=== PATIENT | male | born 1960 | race Caucasian/White ===

== ENCOUNTER 2018-07-22 08:27 | Emergency (ER) | payer BC ==
[2018-07-22 08:58] VITALS: BP 110/76
--- NOTE | 2018-07-22 09:06 | UC ---
UC General HPI - HPI Summary HPI Summary: pt reports having a 2 day hx of fever and a swollen -painful gland on the R side of his neck for 2 days. fever has resolved. pain from gland worsens with turn of head, swallow. no difficulty with passing of food, saliva or liquids. denies any skin rash, sore throat or dental pain. pt is a smoker but is taking Chantix and reducing use. he does not chew. - History of Current Complaint Chief Complaint: UCGeneralIllness Stated Complaint: NECK PAIN,FEVER Time Seen by Provider: 07/22/18 08:58 Hx Obtained From: Patient Timing: Constant Pain Intensity: 7 Associated Signs & Symptoms: Positive: Fever - Allergy/Home Medications Allergies/Adverse Reactions: Allergies Allergy/AdvReac Type Severity Reaction Status Date / Time No Known Allergies Allergy Verified 07/22/18 08:51 Home Medications: Home Medications metFORMIN* [Glucophage 500 MG TAB *] 500 mg PO DAILY 07/22/18 [History Confirmed 07/22/18] PMH/Surg Hx/FS Hx/Imm Hx Endocrine History: Diabetes, Dyslipidemia Cardiovascular History: Hypertension - Surgical History Surgical History: Yes Surgery Procedure, Year, and Place: RT SHOULDER SURGERY 2004. L SHOULDER SCOPING 02/04/15 [place]. stents - Family History Known Family History: Positive: None - Social History Alcohol Use: Occasionally Substance Use Type: None Smoking Status (MU): Light Every Day Tobacco Smoker Type: Cigarettes Amount Used/How Often: 1 cigarette daily Length of Time of Smoking/Using Tobacco: 36 YRS Have You Smoked in the Last Year: Yes - Immunization History Vaccination Up to Date: Yes Review of Systems All Other Systems Reviewed And Are Negative: Yes Constitutional: Positive: Fever Skin: Negative: Rash Eyes: Positive: Negative ENT: Negative: Dental Pain, Sore Throat, Ear Ache, Nasal Discharge, Sinus Congestion, Sinus Pain/Tenderness Respiratory: Negative: Shortness Of Breath, Cough Cardiovascular: Positive: Negative Gastrointestinal: Positive: Negative Genitourinary: Positive: Negative Motor: Positive: Negative Neurovascular: Positive: Negative Musculoskeletal: Positive: Negative Neurological: Positive: Negative Psychological: Positive: Negative Physical Exam Triage Information Reviewed: Yes Appearance: Well-Appearing Vital Signs: Initial Vital Signs Temp 97.6 F 07/22/18 08:53 Pulse 92 07/22/18 08:53 Resp 16 07/22/18 08:53 BP 110/76 07/22/18 08:53 Pulse Ox 98 07/22/18 08:53 Vital Signs Reviewed: Yes Eyes: Positive: Conjunctiva Clear ENT: Positive: Pharynx normal, TMs normal. Negative: Nasal congestion, Nasal drainage Dental: Negative: Percussion Tenderness @, Gross Decay/Caries @, Dental Fracture @, Abscess @, Cellulitis @ Neck: Positive: Supple, Other: - Single R anterior cervical jerry node that is enlarged and tender. No other cervical, auricular or clavicular adenopahty. Respiratory: Positive: Lungs clear, Normal breath sounds Cardiovascular: Positive: RRR, No Murmur Abdomen Description: Positive: Nontender, No Organomegaly, Soft Bowel Sounds: Positive: Present Musculoskeletal: Positive: ROM Intact Neurological: Positive: Alert Psychological: Positive: Age Appropriate Behavior Skin Exam: Normal Skin: Negative: Rashes Course/Dx - Course Course Of Treatment: will tx with augmentin to cover potential bacterial infection in oral area. no cellulitis/ashford infections found. Need for f/u to resolution stressed at time of visit, pt agrees and states has had 2 friend with throat CA. - Diagnoses Provider Diagnosis: Adenopathy, cervical Discharge - Sign-Out/Discharge Documenting (check all that apply): Patient Departure All imaging exams completed and their final reports reviewed: No Studies - Discharge Plan Condition: Stable Disposition: HOME Prescriptions: Amoxicillin/Clavulanate TAB* [Augmentin TAB 875*] 875 mg PO BID 10 Days #20 tab Patient Education Materials: Lymphadenopathy (ED) Referrals: Roney Rivas MD [Primary Care Provider] - 7 Days Additional Instructions: DIAGNOSIS: R ANTERIOR CERVICAL CHAIN LYMPHADENOPATHY - Billing Disposition and Condition Condition: STABLE Disposition: Home
== END 2018-07-22 09:13 | disposition home or self-care (01) ==
LOC: UCCORT 08:27
DX: R59.9 Enlarged lymph nodes, unspecified (principal); E11.9 Type 2 diabetes mellitus without complications; Z79.84 Long term (current) use of oral hypoglycemic drugs; I10 Essential (primary) hypertension; F17.210 Nicotine dependence, cigarettes, uncomplicated
CPT/HCPCS: 99212; G0463

== ENCOUNTER 2020-09-10 06:21 | Observation (INO) ==
[~2020-09-10 06:21] MED LIST: Buffered Lidocaine 1% SYRIN 1 ml INTRADERM ONE; Lactated Ringers 1000 ml BAG 1,000 ML IV SCH
[2020-09-10] MEDS ORDERED: Tranexamic Acid 1 GM/100ML BAG 0 MG/0 ML BAG IV ONE (06:56)
[2020-09-10] MEDS ORDERED: ceFAZolin 2 GM PREMIX 2 GM/50 ML BAG ONE (06:56)
[2020-09-10] MEDS ORDERED: Ondansetron 4 mg VIAL 2 MG/ML 2 ml VIAL ONE (06:58)
[2020-09-10] MEDS ORDERED: Propofol 10 MG/ML 20 ML BTL ONE ×3 (06:58→10:03)
[2020-09-10] MEDS ORDERED: Ketamine HCL 50 mg/ml 10 ml VIAL (500 MG) ONE (07:02)
[2020-09-10] MEDS ORDERED: Lidocaine 2% PF 5 ML VIAL ONE (07:06)
[2020-09-10] MEDS ORDERED: Bupivacaine 0.5% SDV PF 30ML VIAL ONE (07:11)
[2020-09-10] MEDS ORDERED: Midazolam 2 mg/2 ml VIAL 1 mg/ml 2 ml VIAL (2 mg) ONE ×2 (07:13→09:36)
[2020-09-10] MEDS ORDERED: ROPIVACAINE 5 MG/ML 30 ML BTL (0.5%) ONE (07:40)
[2020-09-10] MEDS ORDERED: Phenylephrine 40 mcg/mL 10mL (400mcg) SYRINGE ONE (08:19)
[2020-09-10] MEDS ORDERED: Phenylephrine IV 10 MG/ML 1 ml VIAL ONE (08:31)
[2020-09-10] MEDS ORDERED: EPHEDrine (Pressors) 50 MG/ML VIAL ONE (08:43)
[2020-09-10] MEDS ORDERED: diPHENhydraMINE 25 mg TAB PO PRN (09:35)
[2020-09-10] MEDS ORDERED: Magnesium Hydroxide LIQ 30 ML UDC PO PRN (09:35)
[2020-09-10] MEDS ORDERED: Ondansetron ODT 4 mg TAB 4 MG TAB PO PRN (09:35)
[2020-09-10] MEDS ORDERED: diPHENhydraMINE IV 50 MG/ML 1 ml VIAL (BENADRYL) IV PRN (09:35)
[2020-09-10] MEDS ORDERED: Ondansetron 4 mg VIAL 2 MG/ML 2 ml VIAL IV PRN (09:35)
[2020-09-10] MEDS ORDERED: Lactulose 30 ml UDC PO PRN (09:35)
[2020-09-10] MEDS ORDERED: Morphine 2 MG/ML SYRINGE IV PRN (09:35)
[2020-09-10] MEDS ORDERED: Naloxone 0.4 mg VIAL 0.4 mg/ml 1 ml VIAL IV PRN (09:48)
[2020-09-10] MEDS ORDERED: DiMENhydriNATE IV 50 mg/ml 1 ml VIAL IV PUSH PRN (09:48)
[2020-09-10] MEDS ORDERED: HYDROmorphone 1 MG/1 ML SYRINGE IV PRN (09:48)
[2020-09-10] MEDS ORDERED: Dexamethasone IV 4 MG/ML VIAL 1 ml VIAL ONE (09:51)
[2020-09-10] MEDS: Lactated Ringers 1000 ml BAG 1,000 ML IV SCH ×2 (12:20→22:59)
[2020-09-10 15:11] LABS: ABS Monocytes 1.1 10^3/ul (0-0.8); ABS Neutrophils 15.3 10^3/ul (1.5-7.7); Hematocrit 25 % (42-52); Hemoglobin 8.3 g/dL (14.0-18.0); Lymphocyte % 5.7 %; Mean Corpuscular HGB Conc 33 g/dL (31-36); Mean Corpuscular Hemoglobin 31 pg (27-31); Mean Corpuscular Volume 94 fL (80-94); Mean Platelet Volume 6.9 fL (7.4-10.4); Platelet Count 371 10^3/uL (150-450); Red Blood Count 2.66 10^6 /uL (4.18-5.48); Red Cell Distribution Width 14 % (10-15); White Blood Count 17.5 10^3/uL (3.5-10.8)
[2020-09-10] MEDS: ceFAZolin 1 GM ADVAN 1 GM in NS 0.9% 50 ML 50 ML IVPB SCH (16:32)
[2020-09-10] MEDS: oxyCODONE/Acetamin 5/325 mg TAB PO PRN ×2 (16:32→22:18)
[2020-09-10] MEDS ORDERED: Lactated Ringers 500 ml BAG 500 ML IV ONE (16:41)
[2020-09-10 19:16] LABS: BUN/Creatinine Ratio 16.2 (8-20); Calcium 8.6 mg/dL (8.6-10.3); EGFR African American 86.9 (>60); EGFR Non-African American 71.8 (>60); Magnesium 2.1 mg/dL (1.9-2.7); Potassium 4.3 mmol/L (3.5-5.0)
[2020-09-10] MEDS ORDERED: Dextrose 50% Syringe 50 ml 25 GM/50 ML SYRINGE IV PUSH PRN (20:33)
[2020-09-10 20:35] LABS: Urine Appearance Cloudy; Urine Bilirubin Negative (Negative); Urine Blood 3+ (Negative); Urine Color Yellow; Urine Glucose 3+(>=500 mg/dL) (Negative); Urine Ketones Negative (Negative); Urine Nitrite Negative (Negative); Urine Protein 1+(30 mg/dL) (Negative); Urine Specific Gravity 1.023 (1.010-1.030); Urine Urobilinogen Negative (Negative)
[2020-09-10 20:45] LABS: Urine Bacteria Absent (Absent); Urine Red Blood Cell 1+(3-5/hpf) (Absent); Urine Squamous Epithelial Cell Present (Absent); Urine White Blood Cell 1+(6-10/hpf) (Absent)
[2020-09-10] MEDS: Magnesium Hydroxide LIQ 30 ML UDC PO SCH (22:12)
[2020-09-10 22:16] LABS: Hematocrit 20 % (42-52); Hemoglobin 6.8 g/dL (14.0-18.0)
[2020-09-11] MEDS: CMCS:Varenicline 1 mg TAB (NF) PO SCH ×3 (00:29→22:28)
[2020-09-11] MEDS: ceFAZolin 1 GM ADVAN 1 GM in NS 0.9% 50 ML 50 ML IVPB SCH ×2 (00:32→11:20)
[2020-09-11] MEDS ORDERED: Lactated Ringers 500 ml BAG 500 ML IV ONE (03:45)
[2020-09-11 04:09] LABS: Hematocrit 18 % (42-52); Hemoglobin 6.4 g/dL (14.0-18.0); Mean Platelet Volume 6.7 fL (7.4-10.4); Platelet Count 259 10^3/uL (150-450)
[2020-09-11 04:18] LABS: BUN/Creatinine Ratio 17.4 (8-20); Calcium 8.5 mg/dL (8.6-10.3); EGFR African American 83.2 (>60); EGFR Non-African American 68.8 (>60); Potassium 3.7 mmol/L (3.5-5.0)
[2020-09-11] MEDS: Magnesium Hydroxide LIQ 30 ML UDC PO SCH ×2 (09:04→22:26)
[2020-09-11] MEDS: Vitamin THERAPEUTIC TAB PO SCH (09:04)
[2020-09-11 12:49] LABS: Hematocrit 26 % (42-52); Hemoglobin 8.7 g/dL (14.0-18.0)
[2020-09-11 15:02] LABS: Folate 8.33 ng/mL (>3.99)
[2020-09-11 20:49] LABS: ABS Eosinophils 0.1 10^3/ul (0-0.6); ABS Lymphocytes 1.3 10^3/ul (1.0-4.8); ABS Monocytes 1.2 10^3/ul (0-0.8); ABS Neutrophils 7.1 10^3/ul (1.5-7.7); Eosinophil % 0.5 %; Hematocrit 24 % (42-52); Hemoglobin 8.4 g/dL (14.0-18.0); Lymphocyte % 13.4 %; Mean Corpuscular HGB Conc 35 g/dL (31-36); Mean Corpuscular Hemoglobin 31 pg (27-31); Mean Corpuscular Volume 90 fL (80-94); Mean Platelet Volume 6.9 fL (7.4-10.4); Platelet Count 238 10^3/uL (150-450); Red Blood Count 2.69 10^6 /uL (4.18-5.48); Red Cell Distribution Width 17 % (10-15); White Blood Count 9.7 10^3/uL (3.5-10.8)
[2020-09-11] MEDS: oxyCODONE/Acetamin 5/325 mg TAB PO PRN (22:27)
[2020-09-12] MEDS: oxyCODONE/Acetamin 5/325 mg TAB PO PRN ×2 (03:47→13:08)
[2020-09-12 05:16] LABS: ABS Eosinophils 0.1 10^3/ul (0-0.6); ABS Lymphocytes 1.3 10^3/ul (1.0-4.8); ABS Monocytes 1.3 10^3/ul (0-0.8); ABS Neutrophils 6.4 10^3/ul (1.5-7.7); Eosinophil % 0.6 %; Hematocrit 24 % (42-52); Hemoglobin 8.2 g/dL (14.0-18.0); Lymphocyte % 14.7 %; Mean Corpuscular HGB Conc 34 g/dL (31-36); Mean Corpuscular Hemoglobin 31 pg (27-31); Mean Corpuscular Volume 91 fL (80-94); Platelet Count 242 10^3/uL (150-450); Red Blood Count 2.67 10^6 /uL (4.18-5.48); Red Cell Distribution Width 17 % (10-15)
[2020-09-12 05:28] LABS: BUN/Creatinine Ratio 11.9 (8-20); Calcium 8.4 mg/dL (8.6-10.3); EGFR African American 90.9 (>60); EGFR Non-African American 75.1 (>60); Potassium 3.7 mmol/L (3.5-5.0)
[2020-09-12] MEDS: Vitamin THERAPEUTIC TAB PO SCH (09:16)
[2020-09-12] MEDS: CMCS:Varenicline 1 mg TAB (NF) PO SCH (09:18)
[2020-09-12] MEDS: Magnesium Hydroxide LIQ 30 ML UDC PO SCH (09:20)
[2020-09-12 11:07] VITALS: BP 115/62
== END 2020-09-12 14:10 | disposition home or self-care (01) ==
LOC: OR 06:21 → SSU 06:21 → EDSTATUS 16:00
PROVIDERS: ADMIT Orthopaedic Surgery Adult Reconstructive Orthopaedic Surgery; ATTEND Orthopaedic Surgery Adult Reconstructive Orthopaedic Surgery